=== PATIENT | male | born 1995 ===

== ENCOUNTER 2021-02-18 16:48 | Emergency (ER) | payer OTHER ==
[2021-02-18 17:05] VITALS: BP 159/82
--- NOTE | 2021-02-18 17:59 | ED Physician Documentation ---
History of Present Illness - Stated complaint Stated Complaint: RT EAR PAIN - Chief complaint Chief Complaint: Heent - History obtained from History obtained from: Patient - History of Present Illness Timing: How many days ago (2) Pain level max: 6 Pain level now: 6 - Additonal information Additional information: Patient is a 25-year-old male, accompanied by his family. They are all sick with similar symptoms. Have been sick for several days. Today had increasing right ear pain. Nothing makes it better or worse. No fevers. Has had rhinorrhea, cough and congestion. No abdominal pain. No nausea or vomiting. Review of Systems Constitutional: denies: Fever Nose: reports: Rhinorrhea / runny nose, Congestion GI: denies: Vomiting, Diarrhea Skin: denies: Rash Musculoskeletal: denies: Neck pain, Back pain Neurologic: denies: Headache PD PAST MEDICAL HISTORY - Past Medical History Past Medical History: No - Present Medications Home Medications: Ambulatory Orders Medication Instructions Recorded Confirmed Amoxicillin 875 mg PO BID #20 tablet 02/18/21 - Allergies Allergies/Adverse Reactions: Allergies Allergy/AdvReac Type Severity Reaction Status Date / Time No Known Drug Allergies Allergy Verified 02/18/21 17:06 - Social History Does the pt smoke?: No Smoking Status: Never smoker PD ED PE NORMAL - Vitals Vital signs reviewed: Yes - General General: Alert and oriented X 3, No acute distress - HEENT HEENT: Moist mucous membranes, Pharynx benign, Other (R TM is erythematous, dull, bulging with loss of landmarks. Purulent fluid present. L TM normal) - Neck Neck: No adenopathy - Cardiac Cardiac: RRR - Respiratory Respiratory: No respiratory distress, Clear bilaterally - Abdomen Abdomen: Soft, Non tender, Non distended - Derm Derm: Warm and dry - Neuro Neuro: Alert and oriented X 3 - Psych Psych: Normal mood, Normal affect Results - Vitals Vitals: Vital Signs - 24 hr 02/18/21 17:02 Temperature 36.2 C L Heart Rate 77 Respiratory 16 Rate Blood Pressure 159/82 H O2 Saturation 100 Oxygen O2 Source Room air PD MEDICAL DECISION MAKING - ED course Complexity details: considered differential, d/w patient ED course: Patient is well-appearing, nontoxic. Afebrile. Appears to have an otitis media on exam. Will place on antibiotics. Patient counseled regarding signs and symptoms for which I believe and urgent re-evaluation would be necessary. Patient with good understanding of and agreement to plan and is comfortable going home at this time This document was made in part using voice recognition software. While efforts are made to proofread this document, sound alike and grammatical errors may occur. Departure - Departure Disposition: 01 Home, Self Care Clinical Impression: Otitis media Qualifiers: Otitis media type: suppurative Chronicity: acute Laterality: right Recurrence: non-recurrent Spontaneous tympanic membrane rupture: without spontaneous rupture Qualified Code(s): H66.001 - Acute suppurative otitis media without spontaneous rupture of ear drum, right ear Condition: Good Instructions: ED Otitis Media Acute Adult Follow-Up: your,doctor in 1 week [Other] Prescriptions: Amoxicillin 875 mg PO BID #20 tablet Comments: Please follow-up with your doctor as needed for further care. Your prescription was sent to [email or web address] in [place]. Return if you worsen. Take all antibiotics until gone, even if you are feeling better. Discharge Date/Time: 02/18/21 18:22
== END 2021-02-18 18:22 | disposition home or self-care (01) ==
LOC: ED 16:48
DX: H66.001 Acute suppurative otitis media without spontaneous rupture of ear drum, right ear (principal)
CPT/HCPCS: 99282; 99283